=== PATIENT | female | born 1960 | race Two or more races ===

== ENCOUNTER 2018-09-26 10:44 | Day surgery (SDC) | payer OTHER ==
[~2018-09-26 10:44] MED LIST: ISOSORBIDE DINI20 MG; VASOTEC20 MG
== END 2018-09-26 18:30 | disposition home or self-care (01) ==
LOC: CIR.AMB 10:44
DX: S52.592A Other fractures of lower end of left radius, initial encounter for closed fracture (principal)
CPT/HCPCS: 25609; 25118; 25280; C1776